=== PATIENT | female | born 1945 | race Two or more races ===

== ENCOUNTER 2023-11-03 17:35 | Emergency (ER) | payer OTHER ==
[~2023-11-03] VITALS: Ht 154.9 cm; Wt 72.6 kg
[2023-11-03] MEDS ORDERED: LEVOTHYROXINE25 MCG (17:46)
[2023-11-03] MEDS ORDERED: CARVEDILOL3.125 M1 (17:47)
[2023-11-03] MEDS ORDERED: ATIVAN0.5 M1 (17:47)
[2023-11-03 18:56] LABS: HEMATOCRIT 33.8 % (36.0-45.00); HEMOGLOBIN 11.3 g/dL (12.0-15.00); MEAN CELL VOLUME 87.9 fL (80.00-100.00); MEAN CORPUSCULAR HEMOGLOBIN 29.5 pg (27.00-32.0); MEAN CORPUSCULAR HGB CONC 33.6 g/dl (32.0-36.0); PLATELET COUNT 156 K/uL (150-450); RED BLOOD COUNT 3.84 M/uL (4.00-6.00); RED CELL DISTRIBUTION WIDTH 13.7 % (11.5-14.5)
[2023-11-03 19:12] LABS: ALBUMIN 3.2 gm/dL (3.4-5.0); BILIRUBIN TOTAL 0.41 mg/dL (0.3-1.2); CALCIUM 8.8 mg/dL (8.5-10.1); CREATININE SERUM 1.44 mg/dL (0.55-1.02); GFR 35.39; GLOBULINA 3.7 G/DL (2.4-3.5); POTASSIUM 4.32 mEq/L (3.5-5.1); TOTAL PROTEIN 6.9 gm/dL (6.4-8.2)
[2023-11-03] MEDS ORDERED: 0.9 % SODIUM CHLORIDE 1,000 ML IV SCH (19:30)
[2023-11-04] MEDS ORDERED: GUAIFENESIN/DEXTROMETHORPHAN 100 MG/5 ML ML PO STA (03:24)
[2023-11-04] MEDS ORDERED: PAXLOVID 300-11 EAC1 PO (07:16)
[2023-11-04] MEDS ORDERED: ZYNCOF 20-400120 ML PO (07:16)
[2023-11-04] MEDS ORDERED: ALBUTEROL2.5 MG/3 M IH (07:16)
== END 2023-11-04 09:50 ==
LOC: ER 17:35
PROVIDERS: Emergency Medicine
DX: U07.1 COVID-19 (principal); R42 Dizziness and giddiness; Z88.8 Allergy status to other drugs, medicaments and biological substances; E11.9 Type 2 diabetes mellitus without complications; I10 Essential (primary) hypertension; E05.80 Other thyrotoxicosis without thyrotoxic crisis or storm
CPT/HCPCS: 36415; 71046; 93005; 96365; 96366; 99283; J7030

== ENCOUNTER 2024-01-27 10:59 | Emergency (ER) | payer OTHER ==
[~2024-01-27] VITALS: Ht 154.9 cm; Wt 77.1 kg
[~2024-01-27 10:59] MED LIST: ALBUTEROL2.5 MG/3 M IH; ATIVAN0.5 M1; CARVEDILOL3.125 M1; LEVOTHYROXINE25 MCG; PAXLOVID 300-11 EAC1 PO; ZYNCOF 20-400120 ML PO
[2024-01-27] MEDS ORDERED: GLIPIZIDE ER5 MG PO (11:31)
[2024-01-27] MEDS ORDERED: JANUVIA100 MG PO (11:31)
[2024-01-27] MEDS ORDERED: SIMVASTATIN20 MG PO (11:31)
[2024-01-27] MEDS ORDERED: CYANOCOBAL1000 MCG/1 (11:31)
[2024-01-27] MEDS ORDERED: KETOROLAC TROMETHAMINE 60 MG VIAL IM STA (12:52)
[2024-01-27] MEDS ORDERED: KETOROLAC TROMETHAMINE 60 MG VIAL IM ONE (12:56)
== END 2024-01-27 14:40 | disposition home or self-care (01) ==
LOC: ER 10:59
DX: S20.219A Contusion of unspecified front wall of thorax, initial encounter (principal); W18.30XA Fall on same level, unspecified, initial encounter; Y92.9 Unspecified place or not applicable; E11.9 Type 2 diabetes mellitus without complications; I10 Essential (primary) hypertension; Z88.6 Allergy status to analgesic agent
CPT/HCPCS: 96372; 99283; J1885